=== PATIENT | male | born 1975 | race Caucasian/White ===

== ENCOUNTER 2021-08-13 15:36 | Emergency (ER) | payer OTHER, BC ==
[2021-08-13] MEDS: Ondansetron 4 MG/2 ML SDV IVPUSH ONE (16:40)
[2021-08-13 17:01] LABS: CHLORIDE,CL 104 mmol/L (98-107); SODIUM,NA 141 mmol/L (136-145)
[2021-08-13 18:18] VITALS: BP 125/85; PULSE 111
== END 2021-08-13 18:15 | disposition home or self-care (01) ==
LOC: KA.ED 15:36
DX: R42 Dizziness and giddiness (principal); R20.2 Paresthesia of skin; R11.2 Nausea with vomiting, unspecified
CPT/HCPCS: 36415; 80053; 83690; 85025; 93005; 93010; 96374; 99284; 99284-25; J2405